=== PATIENT | male | born 1955 | race Two or more races ===

== ENCOUNTER → 2025-02-06 | Outpatient (CLI) | payer MEDICARE, MEDICAID, SELFPAY ==
--- NOTE | 2025-02-06 | XR_ITS ---
Examination: Bilateral hips, AP pelvis, 5 views Technique: AP, lateral views both hips, AP pelvis, 5 views Exam date and time: February 06, 2025 1214 hrs. Indications: Hip pain years Findings: Mild to moderate bilateral hip osteoarthritis No hip or pelvic fracture Partial visualization low-density lateral to L3 Impression: No hip or pelvic fracture Mild to moderate bilateral hip osteoarthritis
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
== END | disposition home or self-care (01) ==
PROVIDERS: PCP Family Medicine; Referring Provider Family Medicine; Visit Provider Family Medicine
DX: K59.00 Constipation, unspecified (principal)
CPT/HCPCS: 73523; 74018